=== PATIENT | male | born 2000 | race Caucasian/White ===

== ENCOUNTER 2024-05-21 10:23 | Emergency (ER) | payer OTHER ==
[~2024-05-21] VITALS: Ht 177.8 cm; Wt 90.0 kg
[2024-05-21 10:25] VITALS: BP 136/89; TEMP 97; O2SAT 97
[2024-05-21] MEDS ORDERED: ACET-907 PO (10:38)
== END 2024-05-21 12:53 | disposition home or self-care (01) ==
LOC: M ED 10:23
DX: M25.561 Pain in right knee (principal); Z79.1 Long term (current) use of non-steroidal anti-inflammatories (NSAID)